=== PATIENT | male | born 1945 | race Caucasian/White ===

== ENCOUNTER 2017-05-02 04:18 | Observation (INO) | payer MEDICARE ==
[~2017-05-02] VITALS: Ht 190.5 cm; Wt 123.4 kg
[~2017-05-02 04:18] MED LIST: ALBUTEROL PRN; ASA81 MG PO; ASPIRIN CHEW81 MG PO; ATENOLOL50 MG PO; AZITHROMYCIN250 MG PO; BACTRIM DS TAB1 EACH PO; CATAPRES0.2 MG PO; CINNAMON PO; FISH OIL PO; FLOMAX0.4 MG PO; GABAPENTIN300 MG PO; GLIMEPIRIDE2 MG PO; HUMALOG100 UNIT/1; LANTUS100 UNIT/2 SQ; LANTUS100 UNITS/ SQ; LOSARTAN-HCTZ1 EAC2 PO; LOVENOX40 MG/0.4 SQ; MELOXICAM7.5 MG PO; METFORMIN; METFORMIN HCL500 MG PO; MOBIC7.5 MG PO; NORCO 10-325 T1 EACH PO; NORCO 7.5-3251 EACH PO; NORVASC10 MG PO; NOVOLIN N100 UNIT/1 SQ; TRAJENTA; TRAMADOL PO; Z.0.AMARYL2 MG PO; Z.0.ATENOLOL25 MG PO; Z.0.BACTRIM DS TAB1 PO; Z.0.HUMALOG100 UNIT/ SQ; Z.0.MELOXICAM7.5 MG PO; Z.1.DIOVAN HCT 1601 PO
[2017-05-02 04:45] LABS: BASOPHILS # (AUTO) 0.1 (0.0-0.1); EOSINOPHILS # (AUTO) 0.2 (0.0-0.4); EOSINOPHILS % 2.5 % (0.0-6.0); HEMATOCRIT 41.7 % (38.2-49.6); HEMOGLOBIN 14.2 g/dL (14.0-18.0); LYMPHOCYTES # (AUTO) 1.2 (1.0-3.2); LYMPHOCYTES % 13.7 % (18.0-39.1); MEAN CORPUSCULAR HEMOGLOBIN 31.7 pg (28-32); MEAN CORPUSCULAR HGB CONC 34.1 g/dL (31-35); MEAN CORPUSCULAR VOLUME 93.1 fL (81-99); MONOCYTES # (AUTO) 0.8 (0.2-0.8); NEUTROPHILS # (AUTO) 6.6 (2.1-6.9); PLATELET COUNT 293 x10e3/uL (140-360); RED BLOOD COUNT 4.48 x10e6/uL (4.3-5.7); RED CELL DISTRIBUTION WIDTH 13.2 % (11.7-14.4)
[2017-05-02 04:54] LABS: INR 0.92; PROTHROMBIN TIME 12.8 seconds (11.9-14.5)
[2017-05-02 04:55] LABS: PARTIAL THROMBOPLASTIN TIME 39.4 seconds (23.8-35.5)
[2017-05-02] MEDS ORDERED: MORPHINE SULFATE 2 MG/ML SYR IV STA (05:02)
[2017-05-02] MEDS ORDERED: ONDANSETRON HCL INJ 2 MG/ML VIAL IV STA (05:02)
[2017-05-02 05:04] LABS: ALBUMIN 3.4 g/dL (3.5-5.0); ALBUMIN/GLOBULIN RATIO 0.8 (0.8-2.0); ANION GAP 14.9 mmol/L (8-16); CALCIUM 10.3 mg/dL (8.4-10.2); CREATININE, SERUM 1.25 mg/dL (0.72-1.25); MAGNESIUM 2.1 MG/DL (1.3-2.1); POTASSIUM 4.9 mmol/L (3.5-5.1)
[2017-05-02 05:10] LABS: CREATINE KINASE MB 3.3 ng/mL (0.00-5.00)
[2017-05-02] MEDS ORDERED: ONDANSETRON HCL INJ 2 MG/ML VIAL IV PRN (05:45)
[2017-05-02] MEDS ORDERED: ASPIRIN 81 MG ENTERIC COATED PO SCH ×2 (05:45→09:00)
[2017-05-02] MEDS ORDERED: NITROGLYCERIN 0.4 MG SUBL SL PRN (05:45)
[2017-05-02] MEDS ORDERED: FAMOTIDINE 20 MG/2 ML VIAL IV SCH ×2 (05:45→09:00)
[2017-05-02] MEDS ORDERED: DEXTROSE 50% SYRINGE 50 ML IV PRN (05:45)
--- NOTE | 2017-05-02 06:34 | Diagnostic Imaging Report ---
EXAM: CHEST SINGLE (PORTABLE), AP 1 view ORDER DATE: 05/02/2017 5:07 AM Time stamp on exam: 0542 hours INDICATION: Chest pain COMPARISON: None FINDINGS: LINES/TUBES: None LUNGS: No consolidations or edema. PLEURA: No effusions or pneumothorax. HEART AND MEDIASTINUM: Normal size and contour. BONES AND SOFT TISSUES: No acute findings. Advanced degenerative changes of the right shoulder. IMPRESSION: No acute thoracic abnormality. Signed by: Dr. Madison Ho M.D. on 05/02/2017 6:31 AM
[2017-05-02] MEDS ORDERED: SODIUM CHLORIDE 0.9% 500ML 500 ML IV ONE (08:30)
--- OUTSIDE RECORDS SUMMARY | 2017-05-02 08:47 | XMS REPORT ---
Author [facility] Address Unknown Phone Unavailable Care Team Providers Care Life Consultant Name Role Phone SALIMA OWENS Unavailable Unavailable Problems This patient has no known problems. Allergies, Adverse Reactions, Alerts This patient has no known allergies or adverse reactions. Medications This patient has no known medications. Results Test Description Test Time Test Comments Text Results Atomic Results Result Comments CHEST SINGLE (PORTABLE) [address] [address] Patient Name: RACHAEL PHIPPS MR #: [id number] : 1945 Age/Sex: 71/M Req #: [id number] Adm Physician: Ordered by: SALIMA OWENS MD Report #: [id number] Location: ER Room/Bed: Procedure: [id number] DX/CHEST SINGLE (PORTABLE) Exam Date: 05/02/17 Exam Time: 0610 REPORT STATUS: Signed EXAM: CHEST SINGLE (PORTABLE), AP 1 view ORDER DATE: 05/02/2017 5:07 AM Time stamp on exam : 0542 hours INDICATION: Chest pain COMPARISON: None FINDINGS: LINES/ TUBES: None LUNGS: No consolidations or edema. PLEURA: No effusions or pneumothorax. HEART AND MEDIASTINUM: Normal size and contour. BONES AND SOFT TISSUES: No acute findings. Advanced degenerative changes of the right shoulder. IMPRESSION: No acute thoracic abnormality. Signed by: Dr. Oscar Phillips M.D. on 05/02/2017 6:31 AM Dictated By: OSCAR PHILLIPS MD 0 Transcribed By: NOHEMY on 05/02/17630 COPY TO: SALIMA OWENS MD
[2017-05-02 09:53] LABS: CHOL/HDL RATIO 7.3 (3.9-4.7); CHOLESTEROL 254 MD/DL (0-199); HDL CHOLESTEROL 35 MG/DL (40-60); TRIGLYCERIDES 444 MG/DL (0-149)
--- NOTE | 2017-05-02 10:18 | History and Physical ---
PRIMARY CARE PHYSICIAN: Dr. Marques. CHIEF COMPLAINT: Chest pain. HISTORY OF PRESENT ILLNESS: This is a 71-year-old man with a history of hypertension now developing chest discomfort in the substernal region without any radiation, described as ache. He took his clonidine for a blood pressure of 171/91, later took an aspirin 81 mg. The patient did not have any shortness of breath, dizziness, nausea, or diaphoresis. His chest pain has since resolved. His last stress test was about 6 months ago, which he states was negative. PAST MEDICAL HISTORY: Diabetes mellitus type 2, hypertension, colon cancer status post resection and colostomy, arthritis, abdominal abscess, BPH, and diabetic neuropathy. PAST SURGICAL HISTORY: Colon resection and colostomy placement, multiple hernia repairs, and hip surgery. ALLERGIES: Per electronic medical records. FAMILY/SOCIAL HISTORY: The patient is . He has 4 children. No alcohol, illicits, or cigarettes. MEDICATIONS: Per electronic medical records. REVIEW OF SYSTEMS: Denies any dizziness, fevers, chills, or sweats. PHYSICAL EXAMINATION VITAL SIGNS: Have been reviewed. LABS: Reviewed. MEDICATIONS: Reviewed. ASSESSMENT AND PLAN: This is a 71-year-old man: 1. Substernal chest pain: Pain has resolved. His first cardiac enzyme is negative. We will obtain a lipid panel and cardiology consultation. 2. Diabetes mellitus type 2: Obtain hemoglobin A1c and lipid panel. 3. Acute kidney injury, mild, with hypercalcemia: We will rehydrate the patient. We will hold meloxicam. 4. Hypertension: Continue amlodipine and atenolol. 5. Diabetes neuropathy: Continue gabapentin. 6. Benign prostatic hypertrophy. 7. Prophylaxis: We will use Lovenox and Pepcid. 8. Disposition: Cardiology consultation. Check TSH and lipid panel. Job#: [id number] MICHAEL
[2017-05-02] MEDS: INSULIN REGULAR, HUMAN 100 UNIT/1 ML 3ML VIAL SQ SCH ×4 (11:02→21:14)
[2017-05-02] MEDS: NPH, HUMAN INSULIN ISOPHANE 100 UNIT/1 ML 3ML VIAL SQ SCH ×2 (11:02→18:23)
[2017-05-02] MEDS: FAMOTIDINE 20 MG/2 ML VIAL IV SCH ×3 (11:32→18:25)
[2017-05-02] MEDS: ATENOLOL 50 MG TAB PO SCH (11:33)
[2017-05-02] MEDS: GABAPENTIN 300 MG CAP PO SCH ×3 (11:33→21:18)
[2017-05-02] MEDS: ASPIRIN 81 MG CHEW TAB PO SCH (11:33)
[2017-05-02] MEDS: AMLODIPINE BESYLATE 10 MG TAB PO SCH ×2 (11:33→18:13)
--- NOTE | 2017-05-02 11:34 | Consultation ---
DATE OF CONSULTATION: May 02, 2017 REASON FOR CONSULTATION: Chest pain. CONSULTING PHYSICIAN: Dr. Hopkins. HPI: This is a 71-year-old male that presented with chest pain. According to the patient, he woke up this morning at around 2 a.m. and started having constant chest tightness in the center of his chest on a scale of 3/10 with no radiation. He also stated that chest pain was giving him shortness of breath, that he decided to come into the ER for evaluation. He also complained of dizziness and losing his balance when he changes position. Troponin was negative. EKG showed normal sinus rhythm with no ST abnormalities. He denies any headache, any nausea, or vomiting. PAST MEDICAL HISTORY: Hypertension, diabetes, COPD, colon cancer, and BPH. PAST SURGICAL HISTORY: Hip replacement, stent placement in the past, colon cancer resection with colostomy, carpal tunnel surgery, abdominal graft surgery. MEDICATIONS: See med list. ALLERGIES: HE IS NOT ALLERGIC TO ANY MEDICATION. FAMILY HISTORY: Positive for cancer of the throat and stomach. SOCIAL HISTORY: No smoking, no drinking. He lives at home with his family. REVIEW OF SYSTEMS: Negative except those mentioned above. PHYSICAL EXAMINATION VITAL SIGNS: Temperature 97, heart rate 80, blood pressure 141/83, respirations 18. GENERAL: He is awake, alert, and oriented times 3. HEENT: Mucous membrane moist. NECK: Supple. LUNGS: Bilateral clear to auscultation. CARDIOVASCULAR: S1, S2 present. ABDOMEN: Soft. NEUROLOGICAL: Intact. EXTREMITIES: With no edema. LABORATORY DATA: Sodium 135, potassium 4.9, chloride 103, CO2 of 22, BUN 17, creatinine 1.25, glucose 160. White blood cell 9.08, red blood cell 4.48, hemoglobin 14.2, hematocrit 41.3, platelets 293. PT 12.8, INR 0.92. IMPRESSION 1. Chest pain. 2. Hypertension. 3. Diabetes. 4. Obesity. 5. Dizziness. ASSESSMENT AND PLAN: We will go ahead and get an echo to assess the LV and the valve function. We will get serial cardiac enzymes. We will get bilateral carotid Doppler to rule out any occlusion. We will also set him up for Lexiscan Myoview to rule out any occlusion. We will continue statin and nitrate. Further cardiac workup pending clinical course. Thank you for this consultation. Dictated By: Maritza Pena NP Job#: [id number] PAT
[2017-05-02 12:21] LABS: CREATINE KINASE MB 3.5 ng/mL (0.00-5.00)
[2017-05-02] MEDS ORDERED: REGADENOSON 0.4 MG/5 ML SYR IV ONE (12:41)
[2017-05-02] MEDS: ENOXAPARIN SOD INJ 40 MG/0.4 ML SYR SC SCH (18:13)
[2017-05-02] MEDS: TAMSULOSIN HCL 0.4 MG CAP PO SCH ×2 (18:13→18:24)
[2017-05-02 21:21] LABS: CREATINE KINASE MB 3.6 ng/mL (0.00-5.00)
[2017-05-03] VITALS (7 sets, daily range): BP systolic 137–166; BP diastolic 72–79
[2017-05-03 06:44] LABS: CHOL/HDL RATIO 8.3 (3.9-4.7)
[2017-05-03] MEDS: INSULIN REGULAR, HUMAN 100 UNIT/1 ML 3ML VIAL SQ SCH ×4 (07:30→20:56)
[2017-05-03] MEDS: NPH, HUMAN INSULIN ISOPHANE 100 UNIT/1 ML 3ML VIAL SQ SCH ×2 (09:00→17:00)
--- NOTE | 2017-05-03 10:56 | Cardiology Report ---
DATE OF STUDY: May 02, 2017 LEXISCAN NUCLEAR STRESS TEST INDICATION: Chest pain. DESCRIPTION OF PROCEDURE: After informed consent, patient was brought to the stress lab. He was given 10.5 mCi of technetium 99 Myoview intravenously and myocardial perfusion SPECT images obtained in horizontal long axis, short axis, and vertical long axis views. Subsequently, patient was given 0.4 mg Lexiscan intravenously. Then, 31 mCi of technetium 99 Myoview was given intravenously and myocardial perfusion SPECT images were obtained in the horizontal long short axis short axis, and vertical axis views. Gating images were also obtained. Patient tolerated the procedure without any complications. REPORT: Baseline EKG shows sinus bradycardia at 56 beats per minute, rightward axis, right bundle branch block secondary ST-T changes. PARAMETERS 1. Resting heart rate is 73 beats per minute. 2. Resting blood pressure 136/60 mmHg. 3. Maximum heart rate is 73 beats per minute. 4. Maximum blood pressure is 136/60 mmHg. REASON FOR TERMINATION: Endpoint attained. INTERPRETATION 1. Negative chest pain. 2. Negative for arrhythmias. 3. Blood pressure response consistent with Lexiscan. 4. No significant ST-T changes seen during Lexiscan infusion compared to baseline. 5. Analysis of SPECT images reveals a moderate area of decreased radioisotope uptake in the inferior wall during stress, which partially reverses during rest. CONCLUSIONS 1. This study demonstrates a moderate area of inferior wall infarction with a mild area inferior wall ischemia. 2. Inferior wall hypokinesis noted. 3. Overall, ejection fraction is about 52%. Job#: [id number] VAS
[2017-05-03] MEDS: GABAPENTIN 300 MG CAP PO SCH ×3 (11:05→20:54)
[2017-05-03] MEDS: ASPIRIN 81 MG CHEW TAB PO SCH (11:05)
[2017-05-03] MEDS: FAMOTIDINE 20 MG/2 ML VIAL IV SCH ×2 (11:05→20:54)
[2017-05-03] MEDS: ATENOLOL 50 MG TAB PO SCH (11:06)
[2017-05-03] MEDS: ENOXAPARIN SOD INJ 40 MG/0.4 ML SYR SC SCH (17:00)
[2017-05-03] MEDS: TAMSULOSIN HCL 0.4 MG CAP PO SCH (17:50)
[2017-05-03] MEDS ORDERED: DIPHENHYDRAMINE HCL 25 MG CAP PO PRN (21:30)
[2017-05-04] VITALS (8 sets, daily range): BP systolic 129–144; BP diastolic 62–71
[2017-05-04] MEDS ORDERED: LIDOCAINE HCL 2% LOCAL 20 ML VIAL ONE ×2 (06:49→10:09)
[2017-05-04] MEDS ORDERED: HEPARIN SOD (PORCINE) 1000 UNIT/ML 30ML ONE (06:50)
[2017-05-04] MEDS ORDERED: FENTANYL CITRATE/PF 100MCG/2 ML INJ ONE ×2 (06:50→10:08)
[2017-05-04] MEDS ORDERED: IOPAMIDOL 370 MG/ML 200 ML INFUS..BTL INJ ONE ×2 (06:51→10:54)
[2017-05-04] MEDS ORDERED: MIDAZOLAM HCL 2 MG/2 ML VIAL ONE ×2 (06:51→10:09)
[2017-05-04] MEDS ORDERED: SODIUM CHLORIDE 0.9% 1000ML 1,000 ML ONE (06:51)
[2017-05-04] MEDS ORDERED: NITROGLYCERIN/D5W 200 MCG/ML 250 ML ONE (06:51)
[2017-05-04] MEDS ORDERED: SODIUM CHLORIDE ONE (06:51)
[2017-05-04] MEDS ORDERED: HEPARIN SOD ONE (06:51)
[2017-05-04] MEDS ORDERED: FENOFIBRATE145 MG PO (07:27)
[2017-05-04] MEDS ORDERED: LIPITOR20 MG PO (07:27)
[2017-05-04] MEDS: INSULIN REGULAR, HUMAN 100 UNIT/1 ML 3ML VIAL SQ SCH ×4 (07:30→21:00)
--- NOTE | 2017-05-04 07:50 | Progress Note ---
DATE: May 03, 2017 TIME: 7:15 a.m. OVERNIGHT: No events. No symptoms. REVIEW OF SYSTEMS: Denies any dizziness or chest pain. PHYSICAL EXAMINATION VITAL SIGNS: Reviewed. GENERAL: A tired-appearing man resting in bed. HEENT: Anicteric CARDIOVASCULAR: Normal S1 and S2. LUNGS: Moderate breath sounds. ABDOMEN: Soft and nontender. EXTREMITIES: No edema. SKIN: Dry. PSYCHIATRIC: Normal affect. LABS: Reviewed. MEDICATIONS: Reviewed. ASSESSMENT: This is a 71-year-old man with: 1. Substernal chest pain. 2. Diabetes mellitus, type 2. 3. Acute kidney injury. 4. Hypertension. 5. Diabetic neuropathy. 6. Benign prostatic hypertrophy. PLAN 1. Stress test and left heart catheterization is pending. 2. Continue diabetes management. 3. Follow up renal function. 4. Control blood pressure. 5. Continue to trend BNP. 6. Continue current care. Job#: [id number] SABRINA
--- NOTE | 2017-05-04 07:52 | History and Physical ---
ADDENDUM TO BRENT ON MAY 02, 2017 PHYSICAL EXAMINATION: GENERAL APPEARANCE: Tired-appearing man resting in bed. HEENT: Anicteric. Pupils respond to light. No oral lesions. CARDIOVASCULAR: Normal S1 and S2. LUNGS: Moderate breath sounds. ABDOMEN: Soft, nontender, nondistended. EXTREMITIES: No edema. SKIN: Dry. PSYCHIATRIC: Normal affect. Job#: [id number]
--- NOTE | 2017-05-04 07:53 | Progress Note ---
DATE: May 04, 2017 TIME: 7:23 a.m. OVERNIGHT: No chest pain. REVIEW OF SYSTEMS: Denies any dizziness. PHYSICAL EXAMINATION VITAL SIGNS: Reviewed. GENERAL: A tired-appearing man resting in bed. HEENT: Anicteric. CARDIOVASCULAR: Normal S1 and S2. LUNGS: Moderate breath sounds. ABDOMEN: Soft and nontender. EXTREMITIES: No edema. SKIN: Dry. PSYCHIATRIC: Normal affect. LABS: Reviewed. MEDICATIONS: Reviewed. ASSESSMENT: A 71-year-old man with: 1. Substernal chest pain. 2. Diabetes mellitus, type 2: Hemoglobin A1c is 6.3, LDL 131 and triglycerides 366. 3. Acute kidney injury. 4. Hypertension. 5. Diabetic neuropathy. 6. BPH. 7. Hypertriglyceridemia and hyperlipidemia. PLAN 1. Follow up stress test and left heart catheterization this morning. 2. Continue blood pressure control. Currently, controlled on medication regimen. Heart rate is also controlled. 3. Continue gabapentin and insulin regimen. 4. Start fenofibrate and add Lipitor. 5. Continue aspirin 81 mg daily. Continue calcium channel lisa. 6. Follow up heart procedure today. Job#: [id number] SABRINA
[2017-05-04] MEDS: TAMSULOSIN HCL 0.4 MG CAP PO SCH ×2 (08:00→17:37)
[2017-05-04] MEDS: FENOFIBRATE 145 MG TAB PO SCH (09:00)
[2017-05-04] MEDS: ASPIRIN 81 MG CHEW TAB PO SCH (09:00)
[2017-05-04] MEDS: GABAPENTIN 300 MG CAP PO SCH ×3 (09:00→20:59)
[2017-05-04] MEDS: NPH, HUMAN INSULIN ISOPHANE 100 UNIT/1 ML 3ML VIAL SQ SCH ×2 (09:00→17:00)
[2017-05-04] MEDS: ATENOLOL 50 MG TAB PO SCH (09:00)
[2017-05-04] MEDS: AMLODIPINE BESYLATE 10 MG TAB PO SCH (09:00)
[2017-05-04] MEDS: FAMOTIDINE 20 MG/2 ML VIAL IV SCH ×2 (09:23→19:39)
[2017-05-04] MEDS ORDERED: HEPARIN SOD/SOD CHLORIDE 1,000 ML ONE (10:09)
[2017-05-04] MEDS ORDERED: BIVALIRUDIN 250 MG/VIAL IV ONE (10:48)
[2017-05-04] MEDS ORDERED: SODIUM CHLORIDE 0.9% 50ML 50 ML ONE (10:48)
[2017-05-04] MEDS ORDERED: ASPIRIN 325 MG TAB ONE (11:28)
[2017-05-04] MEDS ORDERED: CLOPIDOGREL BISULFATE 75 MG TAB ONE ×2 (11:28→11:32)
[2017-05-04] MEDS ORDERED: MORPHINE SULFATE 2 MG/ML SYR ONE (13:04)
[2017-05-04] MEDS: MORPHINE SULFATE 2 MG/ML SYR IV PRN (17:37)
[2017-05-04] MEDS: ONDANSETRON HCL INJ 2 MG/ML VIAL IV PRN (17:37)
--- NOTE | 2017-05-04 18:23 | Operative Report ---
DATE OF PROCEDURE: May 04, 2017 CARDIAC CATHETERIZATION INDICATIONS: Chest pain and abnormal stress test. ANESTHESIA: Versed and fentanyl for conscious sedation and 2% lidocaine for local anesthesia. BLOOD LOSS: 10 mL. DESCRIPTION OF PROCEDURE: After informed consent, the patient was brought to the cardiac catheterization laboratory and placed on the table. Both groins were painted and draped in a sterile fashion. Lidocaine was injected in the right groin for local anesthesia. Right femoral artery was accessed by the Seldinger technique, and a 5-Gambian sheath was placed in the right femoral artery. Left main artery was cannulated using a JL4 5-Gambian catheter. Coronary angiogram was performed and images obtained in multiple views. The right coronary artery was cannulated using a 3DRC 5-Gambian catheter. Coronary angiogram was performed and images obtained in multiple views. After reviewing the images, it was decided to intervene on the 70% to 80% proximal 1st diagonal lesion. The 5-Gambian sheath was exchanged for a 6-Gambian sheath over a guidewire. The left main was cannulated using a 6-Gambian XP LAD 4 guide. Prowater wire was manipulated and placed in the distal diagonal branch. A 2. 5 x 8 mm balloon was advanced over the Prowater wire, and the lesion was dilated at 8 atmospheres for about 20 seconds. The balloon was removed and a 2.5 x 12 mm Synergy drug-eluting stent was deployed across the lesion 11 atmospheres for about 20 seconds. The lesion was again post dilated using the same balloon at 8 atmospheres for about 20 seconds. All this was performed under constant fluoroscopy guidance. Patient was given Angiomax, aspirin and Plavix during the procedure. Patient tolerated the procedure without any complications. REPORT LEFT MAIN: Normal caliber. No luminal irregularities. LEFT ANTERIOR DESCENDING: Normal caliber and has diffuse luminal irregularities. The 1st diagonal branch has a 70% to 80% proximal lesion. The 2nd diagonal branch has a 30% proximal lesion. LEFT CIRCUMFLEX: Is of normal caliber and has luminal irregularities. RIGHT CORONARY ARTERY: Large caliber and very tortuous and diffusely diseased with a 20% to 30% mid-lesion. Distally, there is about a 70% lesion followed by another 70% to 80% lesion. Balloon used is a 2.5 x 8 mm Emerge. Stent used is a 2.75 x 12 mm Synergy drug-eluting stent. There is less than 10% residual stenosis at the site of the lesion. Job#: [id number] RI
[2017-05-04] MEDS ORDERED: MORPHINE SULFATE 2 MG/ML SYR IV ONE (19:15)
[2017-05-04] MEDS ORDERED: MORPHINE SULFATE 2 MG/ML SYR IV PRN (20:45)
[2017-05-04] MEDS ORDERED: ATORVASTATIN 20 MG TAB PO SCH (21:00)
[2017-05-05] VITALS: BP 143/69
[2017-05-05 05:30] VITALS: BP 154/70
[2017-05-05] MEDS: ONDANSETRON HCL INJ 2 MG/ML VIAL IV PRN (06:03)
[2017-05-05 07:00] VITALS: BP 154/70
[2017-05-05 07:27] VITALS: BP 143/76
[2017-05-05] MEDS: FAMOTIDINE 20 MG/2 ML VIAL IV SCH (08:03)
[2017-05-05] MEDS: AMLODIPINE BESYLATE 10 MG TAB PO SCH (08:04)
[2017-05-05] MEDS: GABAPENTIN 300 MG CAP PO SCH (08:04)
[2017-05-05] MEDS: ASPIRIN 81 MG CHEW TAB PO SCH (08:04)
[2017-05-05] MEDS: TAMSULOSIN HCL 0.4 MG CAP PO SCH (08:04)
[2017-05-05] MEDS: FENOFIBRATE 145 MG TAB PO SCH (08:05)
[2017-05-05] MEDS: ATENOLOL 50 MG TAB PO SCH (08:05)
[2017-05-05] MEDS: INSULIN REGULAR, HUMAN 100 UNIT/1 ML 3ML VIAL SQ SCH (08:41)
[2017-05-05] MEDS: NPH, HUMAN INSULIN ISOPHANE 100 UNIT/1 ML 3ML VIAL SQ SCH (08:42)
== END 2017-05-05 10:15 | disposition home or self-care (01) ==
LOC: ER 04:18 → ERHOLD 08:44 → IMCU 23:38
PROVIDERS: ADMIT Internal Medicine; ATTEND Internal Medicine
DX: I25.10 Atherosclerotic heart disease of native coronary artery without angina pectoris (principal); E11.42 Type 2 diabetes mellitus with diabetic polyneuropathy; N17.9 Acute kidney failure, unspecified; I10 Essential (primary) hypertension; J44.9 Chronic obstructive pulmonary disease, unspecified; Z85.038 Personal history of other malignant neoplasm of large intestine; E83.52 Hypercalcemia; N40.0 Benign prostatic hyperplasia without lower urinary tract symptoms; Z93.3 Colostomy status; E78.5 Hyperlipidemia, unspecified; N18.3 Chronic kidney disease, stage 3 (moderate); E66.9 Obesity, unspecified; Z68.33 Body mass index [BMI] 33.0-33.9, adult; R42 Dizziness and giddiness
CPT/HCPCS: 92921; C9600; 36140; 36415; 71045; 77002; 78452; 80053; 80061; 82550; 82553; 82948; 83036; 83735; 83880; 84484; 85025; 85610; 85730; 87086; 93005; 93017; 93306; 93880; 97139; 99284; A9502; G0378; J0583; J1644; J1650; J2001; J2250; J2270; J2405; J7030; Q9967

== ENCOUNTER 2022-02-23 17:02 | Emergency (ER) | payer MEDICARE ==
[~2022-02-23] VITALS: Ht 182.9 cm; Wt 111.1 kg
[~2022-02-23 17:02] MED LIST changes: +FENOFIBRATE145 MG PO; +LIPITOR20 MG PO
[2022-02-23] MEDS ORDERED: CEFTRIAXONE 1 GM VIAL IM ONE (17:30)
[2022-02-23] MEDS ORDERED: ACETAMINOPHEN 325 MG TAB PO ONE (17:30)
[2022-02-23] MEDS ORDERED: SODIUM CHLORIDE 0.9% 1000ML 1,000 ML IV SCH (17:30)
[2022-02-23 17:38] LABS: BASOPHILS # (AUTO) 0.1 (0.0-0.1); BASOPHILS % 0.5 % (0.0-1.0); EOSINOPHILS % 0.1 % (0.0-6.0); HEMATOCRIT 42.4 % (38.2-49.6); HEMOGLOBIN 14.3 g/dL (14.0-18.0); LYMPHOCYTES # (AUTO) 0.6 (1.0-3.2); LYMPHOCYTES % 4.9 % (18.0-39.1); MEAN CORPUSCULAR HEMOGLOBIN 30.5 pg (28-32); MEAN CORPUSCULAR HGB CONC 33.7 g/dL (31-35); MEAN CORPUSCULAR VOLUME 90.4 fL (81-99); MONOCYTES % 8.1 % (4.4-11.3); NEUTROPHILS # (AUTO) 10.8 (2.1-6.9); NEUTROPHILS % 85.9 % (38.7-80.0); PLATELET COUNT 218 x10e3/uL (140-360); RED BLOOD COUNT 4.69 x10e6/uL (4.3-5.7); RED CELL DISTRIBUTION WIDTH 14.5 % (11.7-14.4)
[2022-02-23] MEDS ORDERED: CEFTRIAXONE 1 GM VIAL ONE (17:39)
[2022-02-23] MEDS ORDERED: SODIUM CHLORIDE 0.9% 1000ML 1,000 ML ONE (17:39)
[2022-02-23 18:01] LABS: ALBUMIN 4.1 g/dL (3.5-5.0); ALBUMIN/GLOBULIN RATIO 1.4 (0.8-2.0); CALCIUM 10.2 mg/dL (8.4-10.2); CREATININE, SERUM 1.21 mg/dL (0.72-1.25)
[2022-02-23 18:08] LABS: CREATINE KINASE MB 1.2 ng/mL (0-5.0)
[2022-02-23 18:14] LABS: CLARITY,URINE SL CLOUDY (CLEAR); COLOR,URINE YELLOW (YELLOW); KETONES,URINE NEGATIVE (NEGATIVE); LEUKOCYTE ESTERASE ,URINE NEGATIVE (NEGATIVE); NITRITE,URINE NEGATIVE (NEGATIVE); PROTEIN,URINE DIPSTICK 2+ (NEGATIVE); URINE UROBILINOGEN 0.2 mg/dL (0.2 - 1)
[2022-02-23 18:25] LABS: BACTERIA,URINE RARE /HPF; RBC,URINE 0-5 /HPF (0-5); WBC,URINE (MAN) 0-5 /HPF (0-5)
[2022-02-23] MEDS ORDERED: TAMIFLU75 MG PO (20:23)
[2022-02-23] MEDS ORDERED: AZITHROMYCIN250 MG PO (20:23)
== END 2022-02-23 20:30 | disposition home or self-care (01) ==
LOC: ER 17:35
DX: R50.9 Fever, unspecified (principal); J40 Bronchitis, not specified as acute or chronic; R05.9 Cough, unspecified; R09.89 Other specified symptoms and signs involving the circulatory and respiratory systems; Z20.822 Contact with and (suspected) exposure to COVID-19
CPT/HCPCS: 36415; 71045; 80053; 81001; 82550; 82553; 83605; 84484; 85025; 87040; 87071; 87205; 93005; 99284; J0696; J7030; U0002

== ENCOUNTER 2024-08-26 08:05 | Inpatient (IN) | payer MEDICARE ==
[~2024-08-26] VITALS: Ht 190.5 cm; Wt 111.1 kg
[2024-08-26] VITALS (9 sets, daily range): BP systolic 119–142; BP diastolic 69–74; PULSE 74–102; RESP 17–20; TEMP 97.7–99; O2SAT 96–98
[~2024-08-26 08:05] MED LIST changes: +TAMIFLU75 MG PO
[2024-08-26 09:00] LABS: BASOPHILS # (AUTO) 0.1 (0.0-0.1); BASOPHILS % 0.4 % (0.0-1.0); EOSINOPHILS # (AUTO) 0.1 (0.0-0.4); EOSINOPHILS % 0.6 % (0.0-6.0); HEMOGLOBIN 10.8 g/dL (14.0-18.0); LYMPHOCYTES # (AUTO) 0.5 (1.0-3.2); LYMPHOCYTES % 4.1 % (18.0-39.1); MEAN CORPUSCULAR HEMOGLOBIN 29.3 pg (28-32); MEAN CORPUSCULAR HGB CONC 32.7 g/dL (31-35); MEAN CORPUSCULAR VOLUME 89.4 fL (81-99); MONOCYTES # (AUTO) 0.8 (0.2-0.8); MONOCYTES % 6.7 % (4.4-11.3); NEUTROPHILS # (AUTO) 10.3 (2.1-6.9); NEUTROPHILS % 87.9 % (38.7-80.0); PLATELET COUNT 174 x10e3/uL (140-360); RED BLOOD COUNT 3.69 x10e6/uL (4.3-5.7); RED CELL DISTRIBUTION WIDTH 15.2 % (11.7-14.4); WHITE BLOOD COUNT 11.68 x10e3/uL (4.8-10.8)
[2024-08-26] MEDS: Morphine 4mg INJECTION 4 MG/ML INJ IV STA (09:02)
[2024-08-26 09:27] LABS: INR 1.32; PROTHROMBIN TIME 17.5 seconds (11.9-14.5)
[2024-08-26 09:28] LABS: PARTIAL THROMBOPLASTIN TIME 61.3 seconds (23.8-35.5)
[2024-08-26 09:34] LABS: ALBUMIN/GLOBULIN RATIO 0.8 (0.8-2.0); ANION GAP 19.8 mmol/L (8-16); BILIRUBIN,TOTAL 0.9 mg/dL (0.2-1.2); CALCIUM 12.2 mg/dL (8.4-10.2); CREATININE, SERUM 1.56 mg/dL (0.72-1.25); MAGNESIUM 1.8 MG/DL (1.3-2.1); POTASSIUM 3.8 mmol/L (3.5-5.1)
[2024-08-26] MEDS: ONDANSETRON HCL INJ 2MG/ML 2ML 2 MG/ML VIAL IV STA (09:48)
[2024-08-26] MEDS: SODIUM CHLORIDE 0.9% 1000ML 1,000 ML IV STA (09:48)
[2024-08-26] MEDS: HYDROMORPHONE 1MG/1ML INJ IV STA (09:57)
[2024-08-26] MEDS ORDERED: DOCUSATE SODIUM 100 MG CAP PO PRN (11:00)
[2024-08-26] MEDS ORDERED: DEXTROSE 50% SYRINGE 50 ML IV PRN (11:00)
[2024-08-26] MEDS ORDERED: SIMETHICONE 80 MG CHEW PO PRN (11:00)
[2024-08-26] MEDS: INSULIN REGULAR, HUMAN 100 UNIT/1 ML SQ SCH (11:30)
[2024-08-26] MEDS: METOPROLOL TARTRATE INJ 1 MG/ML VIAL IV ONE (11:36)
[2024-08-26 11:47] LABS: BACTERIA,URINE FEW /HPF; BILIRUBIN,URINE NEGATIVE (NEGATIVE); CLARITY,URINE HAZY (CLEAR); COLOR,URINE YELLOW (YELLOW); EPITHELIAL CELLS,URINE FEW /LPF; GLUCOSE, URINE NEGATIVE (NEGATIVE); KETONES,URINE 1+ (NEGATIVE); LEUKOCYTE ESTERASE ,URINE NEGATIVE (NEGATIVE); NITRITE,URINE NEGATIVE (NEGATIVE); PH,URINE 5.5 (5 - 7); PROTEIN,URINE DIPSTICK 1+ (NEGATIVE); RBC,URINE 0-5 /HPF (0-5); URINE UROBILINOGEN 0.2 mg/dL (0.2 - 1); WBC,URINE (MAN) 0-5 /HPF (0-5)
[2024-08-26] MEDS: METOPROLOL TARTRATE 25 MG TAB PO ONE (12:40)
[2024-08-26] MEDS: SODIUM CHLORIDE 0.9% 1000ML 1,000 ML IV SCH (12:40)
[2024-08-26 14:42] LABS: TROPONIN I 0.044 ng/mL (0-0.300)
[2024-08-26] MEDS: GABAPENTIN 300 MG CAP PO SCH (17:01)
[2024-08-26] MEDS: TAMSULOSIN HCL 0.4 MG CAP PO SCH (17:01)
[2024-08-26] MEDS: HYDROMORPHONE 1MG/1ML INJ IV PRN (17:25)
[2024-08-26] MEDS: ATORVASTATIN 20 MG TAB PO SCH (22:04)
[2024-08-26] MEDS: MELATONIN 3 MG TAB PO PRN (23:00)
[2024-08-27] VITALS (9 sets, daily range): BP systolic 121–141; BP diastolic 60–76; PULSE 81–98; RESP 16–20; TEMP 98–98.6; O2SAT 93–98
[2024-08-27 00:52] LABS: TROPONIN I 0.067 ng/mL (0-0.300)
[2024-08-27] MEDS: METOPROLOL TARTRATE INJ 1 MG/ML VIAL IV ONE (06:00)
[2024-08-27 06:28] LABS: BASOPHILS % 0.3 % (0.0-1.0); EOSINOPHILS % 0.1 % (0.0-6.0); HEMATOCRIT 27.5 % (38.2-49.6); HEMOGLOBIN 8.9 g/dL (14.0-18.0); LYMPHOCYTES # (AUTO) 0.5 (1.0-3.2); LYMPHOCYTES % 5.2 % (18.0-39.1); MEAN CORPUSCULAR HEMOGLOBIN 29.3 pg (28-32); MEAN CORPUSCULAR HGB CONC 32.4 g/dL (31-35); MEAN CORPUSCULAR VOLUME 90.5 fL (81-99); MONOCYTES % 9.7 % (4.4-11.3); NEUTROPHILS # (AUTO) 8.8 (2.1-6.9); NEUTROPHILS % 84.3 % (38.7-80.0); PLATELET COUNT 162 x10e3/uL (140-360); RED BLOOD COUNT 3.04 x10e6/uL (4.3-5.7); RED CELL DISTRIBUTION WIDTH 15.3 % (11.7-14.4); WHITE BLOOD COUNT 10.43 x10e3/uL (4.8-10.8)
[2024-08-27 06:53] LABS: ALBUMIN 2.4 g/dL (3.5-5.0); ALBUMIN/GLOBULIN RATIO 0.7 (0.8-2.0); ANION GAP 16.9 mmol/L (8-16); BILIRUBIN,TOTAL 0.8 mg/dL (0.2-1.2); CALCIUM 11.4 mg/dL (8.4-10.2); CHOL/HDL RATIO 6.5 (3.9-4.7); CREATININE, SERUM 1.5 mg/dL (0.72-1.25); POTASSIUM 3.9 mmol/L (3.5-5.1); TOTAL PROTEIN 5.9 g/dL (6.5-8.1)
[2024-08-27] MEDS: ASPIRIN 81 MG CHEW TAB PO SCH (09:07)
[2024-08-27] MEDS: AMLODIPINE BESYLATE 10 MG TAB PO SCH (09:07)
[2024-08-27] MEDS: FENOFIBRATE 145 MG TAB PO SCH (09:07)
[2024-08-27] MEDS: ATENOLOL 50 MG TAB PO SCH (09:27)
[2024-08-27] MEDS ORDERED: HYDROMORPHONE 2MG/ML IV PRN (11:15)
[2024-08-27] MEDS: HYDROMORPHONE 1MG/1ML INJ IV PRN (16:10)
[2024-08-27] MEDS: LORAZEPAM INJ 2 MG/ML VIAL IV PRN (21:17)
[2024-08-28] VITALS (9 sets, daily range): BP systolic 122–146; BP diastolic 58–93; PULSE 56–107; RESP 16–24; TEMP 97.4–98.4; O2SAT 96–100
[2024-08-28 06:33] LABS: BASOPHILS % 0.2 % (0.0-1.0); EOSINOPHILS % 0.2 % (0.0-6.0); HEMATOCRIT 27.5 % (38.2-49.6); HEMOGLOBIN 8.9 g/dL (14.0-18.0); LYMPHOCYTES # (AUTO) 0.5 (1.0-3.2); LYMPHOCYTES % 4.6 % (18.0-39.1); MEAN CORPUSCULAR HEMOGLOBIN 29.1 pg (28-32); MEAN CORPUSCULAR HGB CONC 32.4 g/dL (31-35); MEAN CORPUSCULAR VOLUME 89.9 fL (81-99); MONOCYTES % 9.4 % (4.4-11.3); NEUTROPHILS # (AUTO) 9.3 (2.1-6.9); NEUTROPHILS % 85.2 % (38.7-80.0); PLATELET COUNT 172 x10e3/uL (140-360); RED BLOOD COUNT 3.06 x10e6/uL (4.3-5.7); RED CELL DISTRIBUTION WIDTH 15.1 % (11.7-14.4); WHITE BLOOD COUNT 10.92 x10e3/uL (4.8-10.8)
[2024-08-28 07:30] LABS: ALBUMIN 2.3 g/dL (3.5-5.0); ALBUMIN/GLOBULIN RATIO 0.6 (0.8-2.0); ANION GAP 15.9 mmol/L (8-16); CALCIUM 11.8 mg/dL (8.4-10.2); CREATININE, SERUM 1.36 mg/dL (0.72-1.25); MAGNESIUM 1.7 MG/DL (1.3-2.1); POTASSIUM 3.9 mmol/L (3.5-5.1); TOTAL PROTEIN 5.9 g/dL (6.5-8.1)
[2024-08-28] MEDS: ACETAMINOPHEN 325 MG TAB PO PRN (20:27)
[2024-08-29] VITALS (9 sets, daily range): BP systolic 96–148; BP diastolic 70–115; PULSE 70–144; RESP 20–22; TEMP 97.5–98.6; O2SAT 93–100
[2024-08-29 06:30] LABS: BASOPHILS % 0.2 % (0.0-1.0); EOSINOPHILS % 0.2 % (0.0-6.0); HEMATOCRIT 31.3 % (38.2-49.6); HEMOGLOBIN 10.1 g/dL (14.0-18.0); LYMPHOCYTES # (AUTO) 0.5 (1.0-3.2); LYMPHOCYTES % 3.9 % (18.0-39.1); MEAN CORPUSCULAR HEMOGLOBIN 28.9 pg (28-32); MEAN CORPUSCULAR HGB CONC 32.3 g/dL (31-35); MEAN CORPUSCULAR VOLUME 89.4 fL (81-99); MONOCYTES # (AUTO) 0.8 (0.2-0.8); MONOCYTES % 6.1 % (4.4-11.3); NEUTROPHILS # (AUTO) 11.1 (2.1-6.9); PLATELET COUNT 242 x10e3/uL (140-360); RED CELL DISTRIBUTION WIDTH 15.1 % (11.7-14.4); WHITE BLOOD COUNT 12.42 x10e3/uL (4.8-10.8)
[2024-08-29 10:47] LABS: ALBUMIN 2.4 g/dL (3.5-5.0); ALBUMIN/GLOBULIN RATIO 0.5 (0.8-2.0); ANION GAP 19.2 mmol/L (8-16); BILIRUBIN,TOTAL 1.8 mg/dL (0.2-1.2); CREATININE, SERUM 1.9 mg/dL (0.72-1.25); MAGNESIUM 1.9 MG/DL (1.3-2.1)
[2024-08-29 10:53] LABS: POTASSIUM 5.2 mmol/L (3.5-5.1)
[2024-08-29 10:57] LABS: CALCIUM 13.8 mg/dL (8.4-10.2)
[2024-08-29] MEDS: SODIUM CHLORIDE 0.9% 1000ML 1,000 ML IV SCH (13:12)
[2024-08-29] MEDS: SODIUM CHLORIDE 0.9% 1000ML 1,000 ML IV ONE (13:12)
[2024-08-29] MEDS: SOD POLYSTYRENE SULFONATE SUSP 15 GM/60 ML BTL PR ONE (13:13)
[2024-08-29] MEDS: METOPROLOL TARTRATE INJ 1 MG/ML VIAL IV PRN (22:59)
[2024-08-30] VITALS (17 sets, daily range): BP systolic 110–203; BP diastolic 86–184; PULSE 67–160; RESP 19–37; TEMP 97–99.1; O2SAT 95–100
[2024-08-30] MEDS: SOD POLYSTYRENE SULFONATE SUSP 15 GM/60 ML BTL PR ONE (00:38)
[2024-08-30] MEDS: DILTIAZEM HCL 5 MG/ML 5 ML VIAL IV STA (05:19)
[2024-08-30 07:15] LABS: BASOPHILS % 0.2 % (0.0-1.0); HEMOGLOBIN 10.3 g/dL (14.0-18.0); LYMPHOCYTES # (AUTO) 0.4 (1.0-3.2); LYMPHOCYTES % 2.9 % (18.0-39.1); MEAN CORPUSCULAR HEMOGLOBIN 29.1 pg (28-32); MEAN CORPUSCULAR HGB CONC 30.3 g/dL (31-35); MONOCYTES # (AUTO) 0.8 (0.2-0.8); MONOCYTES % 6.3 % (4.4-11.3); PLATELET COUNT 329 x10e3/uL (140-360); RED BLOOD COUNT 3.54 x10e6/uL (4.3-5.7); RED CELL DISTRIBUTION WIDTH 15.4 % (11.7-14.4)
[2024-08-30 07:46] LABS: ALBUMIN 2.3 g/dL (3.5-5.0); ALBUMIN/GLOBULIN RATIO 0.6 (0.8-2.0); ANION GAP 17.7 mmol/L (8-16); BILIRUBIN,TOTAL 1.4 mg/dL (0.2-1.2); CALCIUM 12.8 mg/dL (8.4-10.2); CREATININE, SERUM 2.21 mg/dL (0.72-1.25); PHOSPHORUS 3.9 MG/DL (2.3-4.7); POTASSIUM 4.7 mmol/L (3.5-5.1); TOTAL PROTEIN 6.4 g/dL (6.5-8.1)
[2024-08-30] MEDS: MUPIROCIN 2% OINT 22 GM TUBE TOP SCH ×2 (13:30→15:45)
[2024-08-30] MEDS: DILTIAZEM HCL 5 MG/ML 5 ML VIAL IV ONE (13:32)
[2024-08-30 16:16] LABS: BASOPHILS % 0.1 % (0.0-1.0); HEMATOCRIT 30.5 % (38.2-49.6); HEMOGLOBIN 9.7 g/dL (14.0-18.0); LYMPHOCYTES # (AUTO) 0.3 (1.0-3.2); LYMPHOCYTES % 2.2 % (18.0-39.1); MEAN CORPUSCULAR HEMOGLOBIN 28.7 pg (28-32); MEAN CORPUSCULAR HGB CONC 31.8 g/dL (31-35); MEAN CORPUSCULAR VOLUME 90.2 fL (81-99); MONOCYTES # (AUTO) 0.9 (0.2-0.8); MONOCYTES % 6.6 % (4.4-11.3); NEUTROPHILS # (AUTO) 12.8 (2.1-6.9); NEUTROPHILS % 90.5 % (38.7-80.0); PLATELET COUNT 301 x10e3/uL (140-360); RED BLOOD COUNT 3.38 x10e6/uL (4.3-5.7); RED CELL DISTRIBUTION WIDTH 15.3 % (11.7-14.4); WHITE BLOOD COUNT 14.15 x10e3/uL (4.8-10.8)
[2024-08-30] MEDS ORDERED: AMIODARONE HCL 150 MG/100 ML BAG IV ONE (17:45)
[2024-08-30] MEDS ORDERED: AMIODARONE HCL 100 ML IV SCH (18:15)
[2024-08-30] MEDS: AMIODARONE HCL 150 MG/100 ML BAG IV ONE (18:39)
[2024-08-30] MEDS: AMIODARONE 900MG 500 ML IV SCH (18:49)
[2024-08-31] VITALS (37 sets, daily range): BP systolic 98–154; BP diastolic 39–130; PULSE 45–159; RESP 13–44; TEMP 98.5–102; O2SAT 88–100
[2024-08-31] MEDS: LORAZEPAM INJ 2 MG/ML VIAL IV PRN (00:50)
[2024-08-31 02:08] LABS: CALCIUM 12.2 mg/dL (8.6-10.2)
[2024-08-31 03:53] LABS: ALBUMIN 2.4 g/dL (3.5-5.0); ALBUMIN/GLOBULIN RATIO 0.6 (0.8-2.0); ANION GAP 17.4 mmol/L (8-16); BILIRUBIN,TOTAL 1.1 mg/dL (0.2-1.2); CALCIUM 12.4 mg/dL (8.4-10.2); CREATININE, SERUM 2.45 mg/dL (0.72-1.25); POTASSIUM 4.4 mmol/L (3.5-5.1); TOTAL PROTEIN 6.3 g/dL (6.5-8.1)
[2024-08-31 04:17] LABS: BASOPHILS % 0.1 % (0.0-1.0); HEMOGLOBIN 9.7 g/dL (14.0-18.0); LYMPHOCYTES # (AUTO) 0.3 (1.0-3.2); LYMPHOCYTES % 1.2 % (18.0-39.1); MEAN CORPUSCULAR HGB CONC 32.3 g/dL (31-35); MEAN CORPUSCULAR VOLUME 89.8 fL (81-99); MONOCYTES # (AUTO) 1.3 (0.2-0.8); NEUTROPHILS # (AUTO) 20.1 (2.1-6.9); NEUTROPHILS % 92.1 % (38.7-80.0); PLATELET COUNT 354 x10e3/uL (140-360); RED BLOOD COUNT 3.34 x10e6/uL (4.3-5.7); RED CELL DISTRIBUTION WIDTH 15.5 % (11.7-14.4); WHITE BLOOD COUNT 21.78 x10e3/uL (4.8-10.8)
[2024-08-31 08:11] LABS: ABG HCO3 20 mmol/L (22-26); ABG PCO2 25 mmHg (35-45); ABG PO2 66 mmHg (80-105); ABG TCO2 20
[2024-08-31] MEDS: Vancomycin IV 1 GM in SODIUM CHLORIDE 0.9% 250ML 250 ML IV ONE (08:18)
[2024-08-31] MEDS: METOPROLOL TARTRATE INJ 1 MG/ML VIAL IV PRN (08:18)
[2024-08-31] MEDS: SODIUM CHLORIDE 0.9% 250ML 250 ML ONE (08:19)
[2024-08-31] MEDS: BUMETANIDE INJ 0.25MG/ML 4ML VIAL IV ONE (08:44)
[2024-08-31] MEDS: ALBUMIN 5% 0.05 GM/ML BTL IV ONE (08:45)
[2024-08-31 10:38] LABS: LYMPHOCYTES % (MANUAL) 2 % (19-48); MONOCYTES % (MANUAL) 5 % (3.4-9.0); MYELOCYTES % (MANUAL) 1 % (0-0); NEUTROPHILS % (MANUAL) 92 % (40-74); PLATELET ESTIMATE ADEQUATE; PLATELET MORPHOLOGY COMMENT NORMAL; RBC MORPHOLOGY COMMENT NORMAL
[2024-08-31] MEDS: DEXTROSE 5%/0.45% SOD CHL 1,000 ML IV SCH (12:22)
[2024-08-31] MEDS: ACETAMINOPHEN 1000 MG/100 ML IV PRN (13:02)
[2024-08-31] MEDS: METOPROLOL TARTRATE INJ 1 MG/ML VIAL IV SCH (17:59)
[2024-08-31] MEDS: AMIODARONE 900MG 500 ML IV SCH (18:39)
[2024-09-01] VITALS (36 sets, daily range): BP systolic 92–159; BP diastolic 62–122; PULSE 36–146; RESP 15–35; TEMP 97.9–99.1; O2SAT 91–100
[2024-09-01 06:54] LABS: BASOPHILS % 0.1 % (0.0-1.0); HEMATOCRIT 27.1 % (38.2-49.6); HEMOGLOBIN 8.3 g/dL (14.0-18.0); LYMPHOCYTES # (AUTO) 0.3 (1.0-3.2); LYMPHOCYTES % 1.6 % (18.0-39.1); MEAN CORPUSCULAR HEMOGLOBIN 28.4 pg (28-32); MEAN CORPUSCULAR HGB CONC 30.6 g/dL (31-35); MEAN CORPUSCULAR VOLUME 92.8 fL (81-99); MONOCYTES # (AUTO) 0.8 (0.2-0.8); MONOCYTES % 4.4 % (4.4-11.3); NEUTROPHILS # (AUTO) 16.5 (2.1-6.9); NEUTROPHILS % 92.8 % (38.7-80.0); PLATELET COUNT 165 x10e3/uL (140-360); RED BLOOD COUNT 2.92 x10e6/uL (4.3-5.7); RED CELL DISTRIBUTION WIDTH 15.9 % (11.7-14.4); WHITE BLOOD COUNT 17.79 x10e3/uL (4.8-10.8)
[2024-09-01 07:07] LABS: ALBUMIN 2.1 g/dL (3.5-5.0); ALBUMIN/GLOBULIN RATIO 0.6 (0.8-2.0); ANION GAP 14.2 mmol/L (8-16); BILIRUBIN,TOTAL 0.4 mg/dL (0.2-1.2); CALCIUM 11.9 mg/dL (8.4-10.2); CREATININE, SERUM 3.45 mg/dL (0.72-1.25); MAGNESIUM 2.1 MG/DL (1.3-2.1); POTASSIUM 4.2 mmol/L (3.5-5.1); TOTAL PROTEIN 5.4 g/dL (6.5-8.1)
[2024-09-01] MEDS: ALBUTEROL/IPRATROPIUM 3 ML NEB NEB PRN (09:07)
[2024-09-02] VITALS (43 sets, daily range): BP systolic 70–151; BP diastolic 54–140; PULSE 90–128; RESP 15–32; TEMP 97.9–98.9; O2SAT 95–100
[2024-09-02] MEDS: AMIODARONE 900MG 500 ML IV ONE (02:54)
[2024-09-02 07:09] LABS: HEMATOCRIT 31.1 % (38.2-49.6); HEMOGLOBIN 9.6 g/dL (14.0-18.0); LYMPHOCYTES # (AUTO) 0.3 (1.0-3.2); LYMPHOCYTES % 1.9 % (18.0-39.1); MEAN CORPUSCULAR HEMOGLOBIN 28.8 pg (28-32); MEAN CORPUSCULAR HGB CONC 30.9 g/dL (31-35); MEAN CORPUSCULAR VOLUME 93.4 fL (81-99); MONOCYTES # (AUTO) 0.8 (0.2-0.8); MONOCYTES % 6.2 % (4.4-11.3); NEUTROPHILS # (AUTO) 11.7 (2.1-6.9); NEUTROPHILS % 89.8 % (38.7-80.0); PLATELET COUNT 143 x10e3/uL (140-360); RED BLOOD COUNT 3.33 x10e6/uL (4.3-5.7); RED CELL DISTRIBUTION WIDTH 15.7 % (11.7-14.4); WHITE BLOOD COUNT 13.04 x10e3/uL (4.8-10.8)
[2024-09-02 07:42] LABS: ALBUMIN/GLOBULIN RATIO 0.6 (0.8-2.0); ANION GAP 14.4 mmol/L (8-16); BILIRUBIN,TOTAL 0.3 mg/dL (0.2-1.2); CALCIUM 11.7 mg/dL (8.4-10.2); CREATININE, SERUM 2.36 mg/dL (0.72-1.25); TOTAL PROTEIN 5.4 g/dL (6.5-8.1)
[2024-09-02 08:14] LABS: POTASSIUM 3.4 mmol/L (3.5-5.1)
[2024-09-02 15:33] LABS: CLARITY,URINE CLOUDY (CLEAR); COLOR,URINE STRAW (YELLOW)
[2024-09-02 15:34] LABS: BILIRUBIN,URINE NEGATIVE (NEGATIVE); GLUCOSE, URINE 2+ (NEGATIVE); KETONES,URINE NEGATIVE (NEGATIVE); LEUKOCYTE ESTERASE ,URINE 1+ (NEGATIVE); NITRITE,URINE NEGATIVE (NEGATIVE); PH,URINE 6 (5 - 7); PROTEIN,URINE DIPSTICK 2+ (NEGATIVE); URINE UROBILINOGEN 0.2 mg/dL (0.2 - 1)
[2024-09-02 15:45] LABS: RBC,URINE >50 /HPF (0-5); WBC,URINE (MAN) 21-50 /HPF (0-5)
[2024-09-03] VITALS (29 sets, daily range): BP systolic 137–161; BP diastolic 59–101; PULSE 57–100; RESP 15–22; TEMP 98–98.6; O2SAT 99–100
[2024-09-03 06:38] LABS: HEMATOCRIT 24.3 % (38.2-49.6); LYMPHOCYTES # (AUTO) 0.1 (1.0-3.2); LYMPHOCYTES % 2.1 % (18.0-39.1); MEAN CORPUSCULAR HEMOGLOBIN 28.2 pg (28-32); MEAN CORPUSCULAR HGB CONC 30.5 g/dL (31-35); MEAN CORPUSCULAR VOLUME 92.7 fL (81-99); MONOCYTES # (AUTO) 0.4 (0.2-0.8); MONOCYTES % 6.2 % (4.4-11.3); NEUTROPHILS % 89.6 % (38.7-80.0); RED BLOOD COUNT 2.62 x10e6/uL (4.3-5.7); RED CELL DISTRIBUTION WIDTH 15.9 % (11.7-14.4); WHITE BLOOD COUNT 6.64 x10e3/uL (4.8-10.8)
[2024-09-03 06:45] LABS: HEMOGLOBIN 7.4 g/dL (14.0-18.0); PLATELET COUNT 113 x10e3/uL (140-360)
[2024-09-03 08:28] LABS: ALBUMIN 1.9 g/dL (3.5-5.0); ALBUMIN/GLOBULIN RATIO 0.6 (0.8-2.0); ANION GAP 12.3 mmol/L (8-16); BILIRUBIN,TOTAL 0.2 mg/dL (0.2-1.2); CALCIUM 11.3 mg/dL (8.4-10.2); CREATININE, SERUM 1.57 mg/dL (0.72-1.25); POTASSIUM 3.3 mmol/L (3.5-5.1); TOTAL PROTEIN 4.9 g/dL (6.5-8.1)
[2024-09-03] MEDS: POTASSIUM CHLORIDE 20MEQ/100ML 100 ML IV SCH (14:46)
[2024-09-03] MEDS ORDERED: Morphine 2mg Syringe 2 MG/ML SYR IV PRN (17:15)
[2024-09-04] VITALS (34 sets, daily range): BP systolic 143–176; BP diastolic 62–105; PULSE 52–85; RESP 16–29; TEMP 95.8–98.7; O2SAT 97–100
[2024-09-04] MEDS: ACETAMINOPHEN 1000 MG/100 ML IV PRN (04:04)
[2024-09-04 06:55] LABS: BASOPHILS % 0.2 % (0.0-1.0); EOSINOPHILS % 0.2 % (0.0-6.0); HEMATOCRIT 26.3 % (38.2-49.6); HEMOGLOBIN 8.1 g/dL (14.0-18.0); LYMPHOCYTES # (AUTO) 0.3 (1.0-3.2); LYMPHOCYTES % 5.6 % (18.0-39.1); MEAN CORPUSCULAR HEMOGLOBIN 29.1 pg (28-32); MEAN CORPUSCULAR HGB CONC 30.8 g/dL (31-35); MEAN CORPUSCULAR VOLUME 94.6 fL (81-99); MONOCYTES # (AUTO) 0.6 (0.2-0.8); MONOCYTES % 10.2 % (4.4-11.3); NEUTROPHILS # (AUTO) 4.4 (2.1-6.9); NEUTROPHILS % 81.4 % (38.7-80.0); PLATELET COUNT 129 x10e3/uL (140-360); RED BLOOD COUNT 2.78 x10e6/uL (4.3-5.7); RED CELL DISTRIBUTION WIDTH 15.6 % (11.7-14.4); WHITE BLOOD COUNT 5.38 x10e3/uL (4.8-10.8)
[2024-09-04 07:42] LABS: ALBUMIN 1.9 g/dL (3.5-5.0); ALBUMIN/GLOBULIN RATIO 0.7 (0.8-2.0); ANION GAP 11.5 mmol/L (8-16); BILIRUBIN,TOTAL 0.3 mg/dL (0.2-1.2); CALCIUM 10.8 mg/dL (8.4-10.2); CREATININE, SERUM 1.2 mg/dL (0.72-1.25); POTASSIUM 3.5 mmol/L (3.5-5.1); TOTAL PROTEIN 4.6 g/dL (6.5-8.1)
[2024-09-04] MEDS: DEXTROSE 5% 1,000 ML IV ONE ×2 (12:22)
[2024-09-05] VITALS (17 sets, daily range): BP systolic 132–174; BP diastolic 68–101; PULSE 54–67; RESP 15–24; TEMP 98.1–98.4; O2SAT 95–100
[2024-09-05 06:32] LABS: BASOPHILS % 0.1 % (0.0-1.0); EOSINOPHILS % 0.4 % (0.0-6.0); HEMATOCRIT 28.1 % (38.2-49.6); HEMOGLOBIN 8.7 g/dL (14.0-18.0); LYMPHOCYTES # (AUTO) 0.5 (1.0-3.2); LYMPHOCYTES % 6.1 % (18.0-39.1); MEAN CORPUSCULAR HEMOGLOBIN 28.5 pg (28-32); MEAN CORPUSCULAR VOLUME 92.1 fL (81-99); MONOCYTES # (AUTO) 0.6 (0.2-0.8); MONOCYTES % 7.2 % (4.4-11.3); NEUTROPHILS # (AUTO) 6.9 (2.1-6.9); NEUTROPHILS % 84.7 % (38.7-80.0); PLATELET COUNT 142 x10e3/uL (140-360); RED BLOOD COUNT 3.05 x10e6/uL (4.3-5.7); RED CELL DISTRIBUTION WIDTH 15.5 % (11.7-14.4); WHITE BLOOD COUNT 8.14 x10e3/uL (4.8-10.8)
[2024-09-05 07:27] LABS: ALBUMIN/GLOBULIN RATIO 0.7 (0.8-2.0); ANION GAP 12.4 mmol/L (8-16); BILIRUBIN,TOTAL 0.3 mg/dL (0.2-1.2); CALCIUM 10.7 mg/dL (8.4-10.2); CREATININE, SERUM 1.05 mg/dL (0.72-1.25); MAGNESIUM 1.6 MG/DL (1.3-2.1); TOTAL PROTEIN 4.8 g/dL (6.5-8.1)
[2024-09-05 07:29] LABS: POTASSIUM 3.4 mmol/L (3.5-5.1)
[2024-09-05 07:34] LABS: ABG HCO3 20 mmol/L (22-26); ABG PCO2 25 mmHg (35-45); ABG PO2 66 mmHg (80-105); ABG TCO2 20
[2024-09-05] MEDS: DEXTROSE 5% 1,000 ML IV ONE (10:20)
[2024-09-05] MEDS: DEXTROSE 5% 1,000 ML IV SCH (10:21)
[2024-09-05] MEDS: POTASSIUM CHLORIDE 20MEQ/100ML 100 ML IV ONE (10:22)
== END 2024-09-05 16:10 | disposition hospice, inpatient (51) | DRG 871 ==
LOC: ER 08:23 → ERHOLD 11:27 → MED/SURG3 12:11 → ICU 08-30 16:38
PROVIDERS: ADMIT Internal Medicine; ATTEND Internal Medicine
PROC: 0T9B70Z Drainage of Bladder with Drainage Device, Via Natural or Artificial Opening (ICD-10-PCS; 2024-08-29)
PROC: 02HV33Z Insertion of Infusion Device into Superior Vena Cava, Percutaneous Approach (ICD-10-PCS; 2024-08-30)
PROC: 4A033R1 Measurement of Arterial Saturation, Peripheral, Percutaneous Approach (ICD-10-PCS; principal; 2024-08-31)
PROC: 3E0333Z Introduction of Anti-inflammatory into Peripheral Vein, Percutaneous Approach (ICD-10-PCS; 2024-08-31)
DX: A41.50 Gram-negative sepsis, unspecified (principal); G93.41 Metabolic encephalopathy; R53.2 Functional quadriplegia; N17.9 Acute kidney failure, unspecified; N39.0 Urinary tract infection, site not specified; I13.0 Hypertensive heart and chronic kidney disease with heart failure and stage 1 through stage 4 chronic kidney disease, or unspecified chronic kidney disease; E87.1 Hypo-osmolality and hyponatremia; L97.528 Non-pressure chronic ulcer of other part of left foot with other specified severity; D68.9 Coagulation defect, unspecified; E11.621 Type 2 diabetes mellitus with foot ulcer; I48.0 Paroxysmal atrial fibrillation; B96.1 Klebsiella pneumoniae [K. pneumoniae] as the cause of diseases classified elsewhere; L89.152 Pressure ulcer of sacral region, stage 2; Z66 Do not resuscitate; I50.9 Heart failure, unspecified; E11.22 Type 2 diabetes mellitus with diabetic chronic kidney disease; N18.31 Chronic kidney disease, stage 3a; D63.1 Anemia in chronic kidney disease; E86.0 Dehydration; E83.52 Hypercalcemia; I25.10 Atherosclerotic heart disease of native coronary artery without angina pectoris; E78.00 Pure hypercholesterolemia, unspecified; N40.0 Benign prostatic hyperplasia without lower urinary tract symptoms; M48.061 Spinal stenosis, lumbar region without neurogenic claudication; M54.40 Lumbago with sciatica, unspecified side; M19.90 Unspecified osteoarthritis, unspecified site; R31.9 Hematuria, unspecified; R53.81 Other malaise; E66.9 Obesity, unspecified; Z68.30 Body mass index [BMI] 30.0-30.9, adult; Z79.84 Long term (current) use of oral hypoglycemic drugs; Z79.4 Long term (current) use of insulin; Z79.82 Long term (current) use of aspirin; I25.2 Old myocardial infarction; Z85.038 Personal history of other malignant neoplasm of large intestine; Z93.3 Colostomy status; Z90.49 Acquired absence of other specified parts of digestive tract; Z88.5 Allergy status to narcotic agent
CPT/HCPCS: 36415; 36569; 36600; 51700; 70450; 71045; 72125; 72131; 72148; 72192; 74176; 76770; 76857; 80053; 80061; 81001; 82550; 82805; 82948; 83605; 83735; 83970; 84100; 84484; 84550; 85025; 85610; 85730; 87040; 87071; 87186; 87205; 93005; 94640; 94799; 96372; 99252; 99284; J0690; J1171; J2060; J2185; J2270; J2405; J2470; J3480; J7030; J7050; J7070

== ENCOUNTER 2024-09-05 14:30 | Inpatient (IN) | payer OTHER ==
[2024-09-05] MEDS ORDERED: ATROPINE SULFATE 1% OPTH DROPS 15 ML BTL SL PRN (17:00)
[2024-09-05] MEDS ORDERED: BISACODYL 10 MG SUPP PR PRN (17:00)
[2024-09-05 17:14] VITALS: BP 161/80; RESP 20
[2024-09-05] MEDS ORDERED: ATROPINE SULFATE 1% OPTH SOLN 5 ML SL PRN (17:30)
[2024-09-05 18:00] VITALS: BP 159/76; PULSE 67; RESP 20
[2024-09-05 19:31] VITALS: PULSE 71; RESP 17; O2SAT 97
[2024-09-06] VITALS (10 sets, daily range): BP systolic 140–169; BP diastolic 70–72; PULSE 77–122; RESP 17–19; TEMP 96.8–97.6; O2SAT 95–100
[2024-09-06] MEDS: HYDROMORPHONE 1MG/1ML INJ IV PRN (09:04)
[2024-09-07] VITALS (7 sets, daily range): BP systolic 151–170; BP diastolic 70–94; PULSE 75–89; RESP 16–20; TEMP 97–98; O2SAT 96–100
[2024-09-08 02:58] VITALS: BP 193/81; PULSE 71; RESP 16; TEMP 97.5; O2SAT 97
[2024-09-08 08:50] VITALS: BP 167/85; PULSE 75; RESP 17; TEMP 97.4; O2SAT 99
[2024-09-08] MEDS ORDERED: DULCOLAX SUPP10 MG PR (10:19)
[2024-09-08] MEDS ORDERED: Hydromorphone 1MG/1ML Inj IV (10:19)
[2024-09-08] MEDS ORDERED: ATROPINE SULFATE2 ML SL (10:19)
[2024-09-08 15:47] VITALS: BP 151/80; PULSE 76; RESP 17; TEMP 97.7; O2SAT 99
== END 2024-09-08 15:50 | disposition hospice, inpatient (51) | DRG 871 ==
LOC: ICU 14:30 → MED/SURG 09-06 17:20
PROVIDERS: ADMIT Internal Medicine; ATTEND Internal Medicine
DX: A41.50 Gram-negative sepsis, unspecified (principal); G93.41 Metabolic encephalopathy; N17.9 Acute kidney failure, unspecified; E87.1 Hypo-osmolality and hyponatremia; I48.91 Unspecified atrial fibrillation; R31.9 Hematuria, unspecified; E83.52 Hypercalcemia; Z51.5 Encounter for palliative care; D64.9 Anemia, unspecified; R19.5 Other fecal abnormalities; I10 Essential (primary) hypertension; E11.40 Type 2 diabetes mellitus with diabetic neuropathy, unspecified; Z79.4 Long term (current) use of insulin; Z79.84 Long term (current) use of oral hypoglycemic drugs; N40.0 Benign prostatic hyperplasia without lower urinary tract symptoms; M19.91 Primary osteoarthritis, unspecified site; Z85.038 Personal history of other malignant neoplasm of large intestine; Z93.3 Colostomy status; Z79.899 Other long term (current) drug therapy; Z79.82 Long term (current) use of aspirin
CPT/HCPCS: 82270; 94799; J1171